=== PATIENT | female | born 1930 | race American Indian/Alaskan Native ===

== ENCOUNTER 2018-07-25 21:58 | Inpatient (IN) | payer MEDICARE, OTHER ==
--- NOTE | 2018-07-25 23:39 | XRay Report ---
FINAL REPORT EXAM: XR CHEST 1V AP HISTORY: Shortness of breath TECHNIQUE: upright single view chest PRIORS: None. FINDINGS: Cardiac and mediastinal contours are unremarkable. No focal pulmonary infiltrate is identified. No pleural fluid collection seen. Pulmonary vasculature is unremarkable. IMPRESSION: Negative single-view chest
[2018-07-25 23:48] LABS: Basophils # (Auto) 0.1 K/mm3 (0.0-0.1); Basophils % (Auto) 0.5 % (0.0-1.8); Hematocrit 34.9 % (30.3-42.9); Hemoglobin 11.6 gm/dl (10.1-14.3); Lymphocytes # (Auto) 1.2 K/mm3 (1.2-5.4); Lymphocytes % (Auto) 8.7 % (13.4-35.0); Mean Corpuscular HGB Conc 33 % (30-34); Mean Corpuscular Volume 99 fl (79-97); Monocytes % (Auto) 7.1 % (0.0-7.3); Platelet Count 263 K/mm3 (140-440); Red Blood Count 3.52 M/mm3 (3.65-5.03)
[2018-07-25 23:56] LABS: Calcium 10.2 mg/dL (8.4-10.2)
--- NOTE | 2018-07-25 23:58 | Emergency Department Report ---
ED General Adult HPI - General Chief complaint: Dyspnea/Respdistress Stated complaint: HEMATEMESIS Time Seen by Provider: 07/25/18 23:30 Source: patient Mode of arrival: Stretcher Limitations: No Limitations - History of Present Illness Initial comments: She is an 88-year-old female extensive emergency room with complaints of cough and vomiting blood. Patient states yesterday she vomited blood twice and then again this evening. Patient states that the vomitus is dark brown and did not note any bright red blood. Patient denies changes in her stool color. Patient denies diarrhea. Patient denies abdominal pain. Patient denies shortness of breath. Patient denies chest pain. Patient denies any other complaints except for cough. Patient states that her cough is a dry cough as been going on for 48 hours. -: Sudden - Related Data Allergies Allergy/AdvReac Type Severity Reaction Status Date / Time No Known Allergies Allergy Verified 07/25/18 22:39 ED Review of Systems ROS: Stated complaint: HEMATEMESIS Other details as noted in HPI Constitutional: denies: chills, fever Eyes: denies: eye pain, eye discharge, vision change ENT: denies: ear pain, throat pain Respiratory: cough. denies: shortness of breath, wheezing Cardiovascular: denies: chest pain, palpitations Endocrine: no symptoms reported Gastrointestinal: nausea, vomiting, hematemesis. denies: abdominal pain, diarrhea Genitourinary: denies: urgency, dysuria, discharge Musculoskeletal: denies: back pain, joint swelling, arthralgia Skin: denies: rash, lesions Neurological: denies: headache, weakness, paresthesias Psychiatric: denies: anxiety, depression Hematological/Lymphatic: denies: easy bleeding, easy bruising ED Past Medical Hx - Past Medical History Previous Medical History?: Yes Hx Hypertension: Yes Additional medical history: alchoholism - Surgical History Past Surgical History?: No - Family History Family history: no significant - Social History Smoking Status: Current Every Day Smoker Substance Use Type: Alcohol ED Physical Exam - General Limitations: No Limitations General appearance: alert, in no apparent distress - Head Head exam: Present: atraumatic, normocephalic - Eye Eye exam: Present: normal appearance - ENT ENT exam: Present: mucous membranes moist - Neck Neck exam: Present: normal inspection - Respiratory Respiratory exam: Present: normal lung sounds bilaterally, rhonchi, decreased breath sounds. Absent: respiratory distress - Cardiovascular Cardiovascular Exam: Present: regular rate, normal rhythm. Absent: systolic murmur, diastolic murmur, rubs, gallop - GI/Abdominal GI/Abdominal exam: Present: soft, normal bowel sounds - Extremities Exam Extremities exam: Present: normal inspection - Back Exam Back exam: Present: normal inspection - Neurological Exam Neurological exam: Present: alert, oriented X3 - Psychiatric Psychiatric exam: Present: normal affect, normal mood - Skin Skin exam: Present: warm, dry, intact, normal color. Absent: rash ED Course Vital Signs 07/25/18 07/25/18 07/25/18 22:13 22:16 22:40 Temperature 97.5 F L Pulse Rate 81 91 H 130 H Respiratory 14 18 16 Rate Blood Pressure 118/71 118/71 113/83 O2 Sat by Pulse 88 Oximetry 07/25/18 07/25/18 07/25/18 23:18 23:26 23:30 Temperature Pulse Rate 137 H 140 H 140 H Respiratory 25 H 24 25 H Rate Blood Pressure 118/71 101/63 O2 Sat by Pulse 100 100 Oximetry 07/25/18 07/25/18 07/26/18 23:46 23:50 00:00 Temperature Pulse Rate 144 H 131 H 151 H Respiratory 30 H 26 H 28 H Rate Blood Pressure 118/71 118/71 101/63 O2 Sat by Pulse 92 98 90 Oximetry 07/26/18 07/26/18 07/26/18 00:16 00:30 00:46 Temperature Pulse Rate 134 H 129 H 133 H Respiratory 28 H 20 23 Rate Blood Pressure 118/75 94/61 101/57 O2 Sat by Pulse 100 Oximetry 07/26/18 07/26/18 07/26/18 01:00 01:16 01:30 Temperature Pulse Rate 131 H 141 H 134 H Respiratory 18 25 H 19 Rate Blood Pressure 105/62 105/62 105/62 O2 Sat by Pulse 68 L 99 59 L Oximetry 07/26/18 07/26/18 07/26/18 01:45 02:00 02:16 Temperature Pulse Rate 141 H 145 H 136 H Respiratory 28 H 28 H 26 H Rate Blood Pressure 112/61 112/61 101/46 O2 Sat by Pulse 98 100 Oximetry 07/26/18 02:30 Temperature Pulse Rate 127 H Respiratory 38 H Rate Blood Pressure 87/62 O2 Sat by Pulse 75 L Oximetry - Reevaluation(s) Reevaluation #1: Initial Evaluation done. Patient is currently hypoxic and on nonrebreather. Patient also noted to be tachycardic. Patient denies shortness of breath. 07/25/18 23:30 Patient reevaluated. Patient lung sounds change. Patient is now wheezing. Patient will be given duo nebs and mag and site Medrol and antibiotics. 07/26/18 01:15 Patient still tachycardic and on 4 L of oxygen via nasal cannula.. Lung sounds are clear now. Patient placed on BiPAP. Patient is not hypoxic at this time but heart rate is elevated. Patient will be given saline bolus. 07/26/18 02:15 Patient placed on BiPAP and heart rate improved. Patient will go to nuclear med for nuclear scan. 07/26/18 0230 Stress to all results with patient and family. Discussed plan of care with patient and family. Patient to be admitted to the hospitalist service for further evaluation treatment. Family agree with the plan of care. 07/26/18 03:34 Patient's heart rate better 07/26/18 03:45 - Consultations Consultation #1: Hospitalist consult for admission. Hospitalist to admit patient. Hospitalist to assume care patient.. 07/26/18 03:34 ED Medical Decision Making - Lab Data Result diagrams: 07/25/18 23:30 07/25/18 23:30 - EKG Data -: EKG Interpreted by Me EKG shows normal: sinus rhythm, axis, intervals, QRS complexes, ST-T waves Rate: tachycardia - EKG Data Interpretation: LV[facility] - Radiology Data Radiology results: report reviewed, image reviewed interpreted by me: Negative chest x-ray Normal limits chest x-ray. Nuclear scan negative for PE. - Medical Decision Making Condition is an 80-year-old female that presents emergency room with complaints of cough and vomiting blood. Patient also has nausea vomiting. Patient denied abdominal pain or chest pain shortness of breath. Patient found to be hypoxic. Patient placed on oxygen and then later BiPAP. Patient's heart rate and oxygen improved with BiPAP. Patient given antibiotics and steroids and DuoNeb nebs and saline. Patient admitted to the hospitalist service and into the ICU for further [place] treatment. - Differential Diagnosis hypoxia. Bronchitis. Pneumonia. Sepsis. PE. Critical Care Time: Yes Critical care attestation.: If time is entered above; I have spent that time in minutes in the direct care of this critically ill patient, excluding procedure time. Critical Care Time: 80 minutes ED Disposition Clinical Impression: Cough, Hypoxia, Bronchitis, Hyponatremia, Lactic acid acidosis, Elevated d- dimer, Acute renal insufficiency Hematemesis Qualifiers: Nausea presence: with nausea Qualified Code(s): K92.0 - Hematemesis Nausea & vomiting Qualifiers: Vomiting type: unspecified Vomiting Intractability: non-intractable Qualified Code(s): R11.2 - Nausea with vomiting, unspecified Sepsis Qualifiers: Sepsis type: sepsis due to unspecified organism Qualified Code(s): A41.9 - Sepsis, unspecified organism Disposition: 09 OP ADMIT IP TO THIS HOSP Is pt being admited?: Yes Does the pt Need Aspirin: No Condition: Critical Time of Disposition: 03:35
[2018-07-26 00:20] LABS: Creatine Kinase MB 3.6 ng/mL (0.0-4.0)
[2018-07-26] MEDS ORDERED: MAGNESIUM SULFATE 1 GM in NACL 0.9% 50 ML IV ONE (01:13)
[2018-07-26] MEDS ORDERED: SOLU-Medrol IV ONE (01:13)
[2018-07-26] MEDS ORDERED: DUONEB *Not for PRN Use IH ONE (01:13)
[2018-07-26] MEDS ORDERED: MAXIPIME/NS 1 GM/100 ML 1 GM/100 ML BAG IV ONE (01:14)
[2018-07-26] MEDS ORDERED: NACL 0.9% 1000 ML 1,000 ML IV ONE ×2 (01:52→16:43)
--- NOTE | 2018-07-26 03:42 | Nuclear Medicine Report ---
FINAL REPORT PROCEDURE: NM LUNG SCAN PERF/VENT TECHNIQUE: 5 mCi Tc-99m MAA was injected IV for pulmonary perfusion imaging in multiple projections. 15 MCi xenon 133 was inhaled for pulmonary ventilation imaging in multiple projections. Injection si te: RIGHT antecubital fossa. CPT 02744 REGULATORY GUIDELINES: The patient was released based upon guidelines established in [facility] Regulat ions for Protection Against Radiation, Chapter 1199-08-06-35, Release of Individuals Containing Radio active Drugs or Implants. HISTORY: hypoxia. tachy. COMPARISON: No prior studies are available for comparison. FINDINGS: Posterior images of the perfusion and ventilation study demonstrate no unmatched defects. The oblique perfusion images demonstrate photopenic areas corresponding to the pulmonary abhi and fissures. IMPRESSION: No specific evidence of pulmonary embolism.
[2018-07-26] MEDS ORDERED: PROVENTIL IH PRN ×2 (04:21→06:00)
[2018-07-26] MEDS ORDERED: TYLENOL PO PRN (04:25)
[2018-07-26] MEDS ORDERED: ZOFRAN IV PRN (04:30)
[2018-07-26] MEDS ORDERED: ROBITUSSIN PO PRN (04:34)
[2018-07-26] MEDS ORDERED: VANCOMYCIN PHARMACY TO DOSE IV SCH (05:00)
[2018-07-26] MEDS ORDERED: VANCOMYCIN 1,500 MG in NACL 0.9% 500 ML 500 ML IV ONE (06:00)
[2018-07-26] MEDS ORDERED: SOLU-Medrol ONE (06:06)
[2018-07-26] MEDS: SOLU-Medrol IV SCH ×3 (06:08→21:22)
[2018-07-26 06:58] LABS: BUN/Creatinine Ratio 46; Blood Urea Nitrogen 91 mg/dL (7-17); Calcium 9.1 mg/dL (8.4-10.2); Creatine Kinase MB 3.9 ng/mL (0.0-4.0); Hemolysis Index 43
[2018-07-26] MEDS ORDERED: NACL 0.9% 1000 ML 2,000 ML IV ONE (08:05)
[2018-07-26] MEDS ORDERED: NACL 0.9% 1000 ML 2,000 ML ONE (08:10)
[2018-07-26 08:37] LABS: Hematocrit 32.5 % (30.3-42.9); Hemoglobin 10.6 gm/dl (10.1-14.3)
--- NOTE | 2018-07-26 09:12 | Event Note ---
Date: 07/26/18 -full GI consult dictated - pt w/ ?coffee emesis now stable - discussed w/ pt, family, defers egd and wants to go home - ok to d/c from GI standpoint - will follow and consider EGD based on progress
[2018-07-26] MEDS: PROTONIX IV SCH ×2 (11:00→21:21)
[2018-07-26] MEDS: MAXIPIME/NS 1 GM/100 ML 1 GM/100 ML BAG IV SCH ×3 (11:00→21:21)
[2018-07-26] MEDS ORDERED: LASIX IV ONE ×2 (11:16→17:00)
[2018-07-26] MEDS: DUONEB *Not for PRN Use IH SCH ×3 (12:00→20:38)
--- NOTE | 2018-07-26 12:14 | Consultation ---
History of Present Illness - Reason for Consult Consult date: 07/26/18 acute renal failure Requesting physician: VIOLET NAVA - History of Present Illness This is a 88 y/o female who presented to [facility] ED yesterday with c/o dry cough and vomiting dark brown output. On admission, SCr level was 2.2, today's SCr level was 2.0. GI consulted for possible hematemesis. Pt defered EGD at this time per GI note. Pt is legally blind in both eyes. Pt reports having vomiting for about 2 days prior to admission. Pt denies NSAIDs use. Pt denies any kidney problems to her knowledge. CXR negative for acute process. We were consulted to evaluate this pt who has SILVIA. Pt started on IV fluids and antibiotics. Elevated D Dimer, s/p VQ scan showed no specific PE. Medications and Allergies Allergies Allergy/AdvReac Type Severity Reaction Status Date / Time No Known Allergies Allergy Verified 07/25/18 22:39 Active Meds: Active Medications Acetaminophen (Tylenol) 650 mg PO Q4H PRN PRN Reason: Fever >101 Albuterol (Proventil) 2.5 mg IH Q6HRT PRN PRN Reason: Shortness Of Breath Last Admin: 07/26/18 08:58 Dose: 2.5 mg Documented by: Albuterol/Ipratropium (Duoneb *Not For Prn Use*) 1 ampul IH QIDRT LULY Last Admin: 07/26/18 12:00 Dose: 1 ampul Documented by: Guaifenesin (Robitussin) 200 mg PO Q4H PRN PRN Reason: Cough Cefepime HCl (Maxipime/Ns 1 Gm/100 Ml) 1 gm in 100 mls @ 200 mls/hr IV Q12HR LULY; Protocol Sodium Chloride (Nacl 0.9% 1000 Ml) 1,000 mls @ 125 mls/hr IV DIRECT LULY Methylprednisolone Sodium Succinate (Solu-Medrol) 60 mg IV Q8HR [facility] Last Admin: 07/26/18 06:08 Dose: 60 mg Documented by: Ondansetron HCl (Zofran) 4 mg IV Q8H PRN PRN Reason: Nausea And Vomiting Pantoprazole Sodium (Protonix) 40 mg IV BID [facility] Review of Systems Constitutional: fatigue, weakness Eyes: bilateral: loss of vision (pt reports being blind in both eyes) Cardiovascular: no chest pain, no lightheadedness, no shortness of breath Respiratory: cough Gastrointestinal: nausea, vomiting, no abdominal pain, no diarrhea, no constipation Musculoskeletal: muscle weakness Integumentary: no sores, no wounds Neurological: other (legally blind in both eyes) Exam - Vital Signs Vital signs: Vital Signs Pulse Resp BP 81 14 118/71 07/25/18 22:13 07/25/18 22:13 07/25/18 22:13 - General Appearance General appearance: well-developed EENT: ATNC (blind in both eyes) Neck: Present: neck supple Respiratory: Decreased Breath Sounds Heart: regular, S1S2 Gastrointestinal: Present: normoactive bowel sounds. Absent: tenderness Integumentary: warm and dry Neurologic: alert and oriented x3 Musculoskeletal: Present: other (no edema to BLE) Psychiatric: cooperative Results - Lab Results 07/26/18 08:16 07/26/18 06:07 Most recent lab results Calcium 9.1 mg/dL (8.4-10.2) 07/26/18 06:07 Assessment and Plan Acute Kidney Injury possibly prerenal in setting of nausea, vomiting, questionable underlying CKD process, r/o obstruction: - Renal function reviewed, SCr level was 2.0 today, yesterday's SCr level was 2.2 - Exact SCr baseline unknown - Renally dose meds - On 0.9% NS infusion at 125 ml/hr - Obtain urine lytes/protein - Lactic Acid 3.80 - Repeat BMP at 1700 - Renal US ordered - [place] Catheter: No - Renal plan d/w Dr Haney Vomiting: Questionable Hematemesis: - GI consulted, pt defered EGD at this time - As per primary team Hyponatremia: - Possibly due to hypovolemia - On 0.9% NS infusion at 125 ml/hr - Obtain urine lytes - Repeat BMP at 1700 - Goal sodium correction of < 8 mmol/L within 24 hrs - Monitor Elevated D-Dimer: - VQ Scan showed no specific PE - As per primary
--- NOTE | 2018-07-26 13:05 | Event Note ---
Date: 07/26/18 Patient seen and examined, continue supportive care. Give 2 liter fluids. Nebs due to the wheezing. GI consult noted Patient is legally blind. Assist with feeds. Fall precautions Aspiration precautions Plan discussed with the patient in detail
--- NOTE | 2018-07-26 13:20 | History and Physical Report ---
CHIEF COMPLAINT: Hematemesis. OTHER COMPLAINTS: Includes cough. HISTORY OF PRESENTING ILLNESS: The patient is an 88-year-old female, who said that she vomited blood twice the day prior to presentation and also vomited blood on the evening of day of presentation. Denied history of chest pain. Denied history of abdominal pain, shortness of breath. Also, the patient denied history of diarrhea, constipation or hematochezia. The patient also denied history of melena or back stool. Stated that she did not have any abdominal pain or diarrhea and complain about dry cough going on for about 2 days. There is also no history of fever or chills. The patient was seen in the Emergency Room, evaluated and found to have heme positive stool. PAST MEDICAL HISTORY: Pertinent for hypertension and alcohol abuse. PAST SURGICAL HISTORY: Unremarkable. FAMILY HISTORY: Noncontributory. SOCIAL HISTORY: The patient smokes cigarettes, drinks alcohol and does not use illicit drugs. MEDICATIONS: The patient's home medications are not known. ALLERGIES: There are no known drug allergies. REVIEW OF SYSTEMS: CONSTITUTIONAL: There is no fever, no chills, no diaphoresis. HEENT: There is no headache or sore throat. CARDIOVASCULAR SYSTEM: There is no chest pain, no orthopnea. RESPIRATORY SYSTEM: There is no shortness of breath, but cough is present. GASTROINTESTINAL SYSTEM: Hematemesis is present. No abdominal pain, no diarrhea, no constipation and no hematochezia. NEUROLOGICAL SYSTEM: There is no numbness, no dizziness, no altered mental status. MUSCULOSKELETAL SYSTEM: There is no joint pain or swelling. DERMATOLOGICAL SYSTEM: There is no skin rash or itching. GENITOURINARY SYSTEM: There is no dysuria, hematuria, or flank pain. Rest of system review is normal. PHYSICAL EXAMINATION: GENERAL: At the time of exam, the patient was found to be alert, oriented x 3, and in mild distress due to difficulty in breathing. VITAL SIGNS: At the time of presentation shows temperature of 97.5 degrees Fahrenheit, pulse of 130, respiration 16, blood pressure 113/83, O2 sat of 88% on room air. HEENT: Showed pupils to be equal, round, reactive to light and accommodation. Extraocular muscles intact. NECK: Supple with no JVD or carotid bruits. CARDIOVASCULAR SYSTEM: Show normal first and second heart sounds with no gallops or murmurs. RESPIRATORY SYSTEM: Show reduced air entry on both sides of the lungs with respiratory wheezing. GASTROINTESTINAL SYSTEM: Show abdomen to be full, soft, nontender with no organomegaly or rigidity. NEUROLOGIC: Shows no focal deficit. MUSCULOSKELETAL SYSTEM: Show no joint swelling or tenderness. DERMATOLOGICAL SYSTEM: Showing no skin rash. GENITOURINARY SYSTEM: Showing no costovertebral angle tenderness. PERTINENT LABORATORY AND IMAGING STUDIES: The patient has CBC done that shows elevated white count of 14,200 with normal hemoglobin and normal hematocrit with CBC differential showing elevated segmented neutrophil of 83.7%. The patient's coagulation studies show high D-dimer level. The patient's chemistry showed low sodium level of 131, low chloride of 89.12 with normal potassium level and elevated BUN of 94 with elevated creatinine of 2.2 and high blood glucose of 231. The patient's lactic acid level was high with a value of 2.7. The patient's brain natriuretic peptide level came back normal. Cardiac enzymes show normal troponin, normal total CPK with normal CK-MB and elevated CK percentage index of 5.2. IMAGING STUDIES: The patient had chest x-ray done that shows negative single view chest result. DIAGNOSES: 1. Gastrointestinal bleed. 2. Sepsis. 3. Acute bronchitis. 4. Acute renal failure. PLAN OF ACTION: 1. The patient will be admitted to telemetry. 2. The patient will have Gastroenterology consult with [facility] with Dr. Leroy Smiley consulted. Also, the patient will have Nephrology consult with Dr. Griffith for acute kidney injury. 3. The patient will have basic metabolic panel checked in the morning and will have cardiac enzyme involving troponin, total CK, and CK-MB checked serially every 6 hours x 2 more levels. 4. The patient will remain n.p.o. until seen by the paper cone machine operator. 5. The patient will be on IV normal saline at 125 mL an hour and will be on IV cefepime or Maxipime 1 gram q.6 hours. 6. The patient will be on IV vancomycin with pharmacy to dose for treatment of sepsis. 7. The patient will be on IV Solu-Medrol 60 mg q.8 hours for the treatment of bronchitis and will be on albuterol nebulizer 2.5 mg q.6 hours. 8. The patient will be on IV pantoprazole 40 mg twice daily. 9. The patient will continue BiPAP treatment until the patient improves. 10. The patient will have V/Q scan done because of elevated D-dimer to rule out PE. 11. The patient will be on Tylenol 650 mg by mouth every 4 hours for fever and headache and IV Zofran 4 mg every 8 hours for nausea and vomiting. JOB# [id number] OCN/NTS MTDD
[2018-07-26 15:43] LABS: Creatine Kinase MB 4.7 ng/mL (0.0-4.0)
[2018-07-26] MEDS: NACL 0.9% 1000 ML 1,000 ML IV SCH (17:13)
[2018-07-26 17:42] LABS: Creatine Kinase MB 4.4 ng/mL (0.0-4.0)
--- NOTE | 2018-07-26 20:35 | Consultation ---
REFERRING PHYSICIAN: Angel Alonso MD INDICATION: 1. Anemia. 2. Gastrointestinal bleed. HISTORY OF PRESENT ILLNESS: The patient is an 88-year-old black male being seen by GI for possible GI bleed. The patient reports usual state of health until the day prior to admission. The patient is legally blind. The patient reports coughing with a question of coffee-ground emesis. Per daughter who is there with the interview was conducted. More it is kind of a brownish cough material, but did not think it was necessarily coffee ground. The patient reports that happen twice in 24 hour, subsequently came to the Emergency Room. She had been having a dry cough up until that point. She did notice some streaks of dark stool, but not distinctly black stools. She reports no history of GI bleed. The patient subsequently came to Emergency Room, was seen and evaluated and admitted and GI consulted. The patient denies any other specific GI problems or complaints. PAST MEDICAL HISTORY: Includes: 1. GERD. 2. Dyspepsia. ALLERGIES: No known drug allergies. MEDICATIONS: Seen reviewed and updated in chart. SOCIAL HISTORY: Reported alcohol in the past. FAMILY HISTORY: Negative for colon cancer, IBD or liver disease. REVIEW OF SYSTEMS: GENERAL: Reports weakness. HEENT: No visual complaints or tinnitus. PULMONARY: No shortness of breath. No cough. No chest pain. GASTROINTESTINAL: Reports a question of coffee emesis. All points of 13-point review of systems otherwise negative. PHYSICAL EXAMINATION: VITAL SIGNS: Temperature of 98.7, pulse 120, respirations 18, blood pressure 107/70. GENERAL: Fairly nourished female in no acute distress. HEENT: Pupils are equal, round and reactive. PULMONARY: Clear to auscultation bilaterally. CARDIOVASCULAR: Normal S1, S2. ABDOMEN: Positive bowel sounds, soft. SKIN: No obvious rashes. LABORATORY DATA: Pertinent for white count of 14, hemoglobin and hematocrit 11.6 and 34.9, platelet count of 363. Chem-7, sodium of 133, potassium 4.3, chloride 96, CO2 22, BUN and creatinine of 91 and 2.0. ASSESSMENT AND PLAN: An 88-year-old female presented with a reported 24 hours of 2 bouts of brownish emesis, but not necessarily coffee-ground after 48 hours of dry heaving and coughing. The patient reports some dark, but not black stools. The patient subsequently came to Emergency Room, noted to be slightly anemic. The patient's family and herself did not think the material was coffee ground. The patient herself does not think she is bleeding and does not think an endoscopy is necessary. She is deferred that at this time. Management is noted below. PLAN: 1. PPI IV b.i.d. 2. Follow hematocrit, transfuse as needed. 3. Start p.o. 4. Okay to watch overnight and consider EGD based on progress. 5. The patient herself wants to go home today, I defer that to the primary team. 6. We will follow and consider EGD based on progress. JOB# [id number] CAB/NTS
[2018-07-27] MEDS: NACL 0.9% 1000 ML 1,000 ML IV SCH ×3 (02:19→21:55)
[2018-07-27 03:37] LABS: Hematocrit 23.9 % (30.3-42.9); Hemoglobin 7.9 gm/dl (10.1-14.3); Mean Corpuscular HGB Conc 33 % (30-34); Mean Corpuscular Volume 100 fl (79-97); Platelet Count 173 K/mm3 (140-440); Red Cell Distribution Width 14.2 % (13.2-15.2)
[2018-07-27 03:54] LABS: Calcium 8.5 mg/dL (8.4-10.2)
[2018-07-27] MEDS: SOLU-Medrol IV SCH ×2 (05:38→21:54)
[2018-07-27] MEDS: DUONEB *Not for PRN Use IH SCH ×5 (08:07→20:37)
[2018-07-27] MEDS: PROTONIX IV SCH ×2 (09:46→21:54)
[2018-07-27] MEDS: MAXIPIME/NS 1 GM/100 ML 1 GM/100 ML BAG IV SCH ×2 (09:47→22:00)
--- NOTE | 2018-07-27 10:08 | Progress Note ---
Assessment and Plan Acute Kidney Injury possibly prerenal in setting of nausea, vomiting, questionable underlying CKD process, r/o obstruction: - Cr is trending down but no UOP recorded - Exact SCr baseline unknown - Renally dose meds - On 0.9% NS infusion at 125 ml/hr - Renal US ordered - [place] Catheter: No Vomiting: Questionable Hematemesis: - GI consulted, pt defered EGD at this time - As per primary team Hyponatremia: - imporvong with NS - Goal sodium correction of < 8 mmol/L within 24 hrs Elevated D-Dimer: - VQ Scan showed no specific PE - As per primary Subjective Date of service: 07/27/18 Principal diagnosis: acute renal failure Interval history: denies acute issues Objective - Vital Signs Vital signs: Vital Signs - 12hr 07/26/18 07/27/18 07/27/18 23:43 04:52 05:00 Temperature 98.4 F 98.8 F Pulse Rate 125 H 120 H 121 H Pulse Rate [ Posterior Bilateral Throughout] Respiratory 16 16 Rate Respiratory Rate [Posterior Bilateral Throughout] Blood Pressure 121/62 119/71 O2 Sat by Pulse 99 97 Oximetry 07/27/18 07/27/18 07/27/18 08:05 08:07 08:22 Temperature 98.6 F Pulse Rate 124 H Pulse Rate [ 118 H 112 H Posterior Bilateral Throughout] Respiratory 20 Rate Respiratory 18 18 Rate [Posterior Bilateral Throughout] Blood Pressure 121/43 O2 Sat by Pulse 99 Oximetry - General Appearance General appearance: well-developed, cachectic EENT: ATNC, PERRL, mucous membranes moist Neck: no JVD, no carotid bruit Respiratory: Present: Clear to Ascultation. Absent: Rales, Ronchi Cardiology: regular, S1S2 Gastrointestinal: normoactive bowel sounds, no tenderness, no distended Integumentary: no rash, warm and dry Neurologic: no focal deficit, no asterixis Musculoskeletal: other (follows simple commands) Psychiatric: cooperative - Lab 07/28/18 06:01 07/28/18 06:01 Most recent lab results Calcium 8.5 mg/dL (8.4-10.2) 07/27/18 02:21 Phosphorus 2.70 mg/dL (2.5-4.5) 07/27/18 05:28 Magnesium 1.80 mg/dL (1.7-2.3) 07/27/18 05:28 Medications & Allergies - Medications Allergies/Adverse Reactions: Allergies No Known Allergies Allergy (Verified 07/25/18 22:39) Home Medications: Home Medications Medication Instructions Recorded Confirmed Last Taken Type ALBUTEROL Inhaler(NF) [VENTOLIN 1 puff IH Q4H PRN #1 can 07/28/18 Unknown Rx Inhaler(NF)] Ferrous Sulfate 325 mg PO BID #60 tablet. 07/28/18 Unknown Rx Pantoprazole [Protonix TAB] 40 mg PO DAILY #30 tablet 07/28/18 Unknown Rx guaiFENesin [Robitussin] 200 mg PO Q4H PRN #1 oral.liqd 07/28/18 Unknown Rx Active Medications: Generic Name Dose Route Start Last Admin Trade Name Freq PRN Reason Stop Dose Admin Acetaminophen 650 mg 07/26/18 04:25 Tylenol PO Q4H PRN Fever >101 Albuterol 2.5 mg 07/26/18 06:00 07/26/18 08:58 Proventil IH 2.5 mg Q6HRT PRN Administration Shortness Of Breath Albuterol/Ipratropium 1 ampul 07/26/18 12:00 07/27/18 08:07 Duoneb *Not For Prn Use* IH 1 ampul QIDRT LULY Administration Guaifenesin 200 mg 07/26/18 04:34 Robitussin PO Q4H PRN Cough Cefepime HCl 1 gm in 100 mls @ 200 mls/hr 07/26/18 10:00 07/27/18 09:47 Maxipime/Ns 1 Gm/100 Ml IV 200 mls/hr Q12HR LULY Administration Protocol Sodium Chloride 1,000 mls @ 125 mls/hr 07/26/18 05:00 07/27/18 02:19 Nacl 0.9% 1000 Ml IV 125 mls/hr DIRECT LULY Administration Methylprednisolone Sodium Succinate 60 mg 07/26/18 06:00 07/27/18 05:38 Solu-Medrol IV 60 mg Q8HR LULY Administration Ondansetron HCl 4 mg 07/26/18 04:30 Zofran IV Q8H PRN Nausea And Vomiting Pantoprazole Sodium 40 mg 07/26/18 10:00 07/27/18 09:46 Protonix IV 40 mg BID LULY Administration
--- NOTE | 2018-07-27 10:59 | Gastroenterology Progress Note ---
Addendum entered and electronically signed by EDSON YAO MD 07/27/18 15:15: - EGD today - other rec as outlined Original Note: Assessment and Plan 1.UGIB 2.coffee-ground emesis -H/H 7.9/23.9-trending down -continue to monitor H/H and transfuse as needed -hold blood thinning medications -no active signs of bleeding today per nursing -etiology unclear -will schedule for EGD today (discussed with pt's daughter (Sammie Ribeiro [phone]) to include risks vs benefits- she is agreeable) -Keep NPO -continue PPI -continue supportive care -will follow Subjective Date of service: 07/27/18 Principal diagnosis: UGIB Interval history: No acute distress. No active signs of bleeding this am per nursing. Denies abd pain or N/V. Objective - Constitutional Vitals: Temp Pulse Resp BP Pulse Ox 98.6 F 112 H 18 121/43 99 07/27/18 08:05 07/27/18 08:22 07/27/18 08:22 07/27/18 08:05 07/27/18 08:05 General appearance: no acute distress - Respiratory Respiratory: bilateral: diminished - Cardiovascular Rhythm: other (tachycardia) - Gastrointestinal General gastrointestinal: Present: soft, non-tender, non-distended, normal bowel sounds - Labs CBC & Chem 7: 07/27/18 02:21 07/27/18 02:21 Labs: Laboratory Results - last 24 hr 07/26/18 07/26/18 07/26/18 14:56 14:56 16:38 WBC RBC Hgb Hct MCV MCH MCHC RDW Plt Count Sodium Potassium Chloride Carbon Dioxide Anion Gap BUN Creatinine Estimated GFR BUN/Creatinine Ratio Glucose Lactic Acid 3.50 H* Calcium Phosphorus Magnesium Total Creatine Kinase 113 119 CK-MB (CK-2) 4.7 H 4.4 H CK-MB (CK-2) Rel Index 4.1 H 3.6 Troponin T < 0.010 PTH Intact 07/26/18 07/26/18 07/26/18 16:38 20:16 22:29 WBC RBC Hgb Hct MCV MCH MCHC RDW Plt Count Sodium Potassium Chloride Carbon Dioxide Anion Gap BUN Creatinine Estimated GFR BUN/Creatinine Ratio Glucose Lactic Acid 3.50 H* 2.20 H* 3.30 H* Calcium Phosphorus Magnesium Total Creatine Kinase CK-MB (CK-2) CK-MB (CK-2) Rel Index Troponin T PTH Intact 07/27/18 07/27/18 07/27/18 01:00 02:21 02:21 WBC 15.0 H RBC 2.40 L Hgb 7.9 L Hct 23.9 L D MCV 100 H MCH 33 H MCHC 33 RDW 14.2 Plt Count 173 Sodium 137 Potassium 3.3 L D Chloride 98.2 Carbon Dioxide 25 Anion Gap 17 BUN 68 H Creatinine 1.4 H Estimated GFR 43 BUN/Creatinine Ratio 49 Glucose 188 H Lactic Acid 2.60 H* Calcium 8.5 Phosphorus Magnesium Total Creatine Kinase CK-MB (CK-2) CK-MB (CK-2) Rel Index Troponin T PTH Intact 07/27/18 07/27/18 07/27/18 02:21 05:25 05:28 WBC RBC Hgb Hct MCV MCH MCHC RDW Plt Count Sodium Potassium Chloride Carbon Dioxide Anion Gap BUN Creatinine Estimated GFR BUN/Creatinine Ratio Glucose Lactic Acid 2.70 H* 0.80 Calcium Phosphorus 2.70 Magnesium 1.80 Total Creatine Kinase CK-MB (CK-2) CK-MB (CK-2) Rel Index Troponin T PTH Intact 07/27/18 05:28 WBC RBC Hgb Hct MCV MCH MCHC RDW Plt Count Sodium Potassium Chloride Carbon Dioxide Anion Gap BUN Creatinine Estimated GFR BUN/Creatinine Ratio Glucose Lactic Acid Calcium Phosphorus Magnesium Total Creatine Kinase CK-MB (CK-2) CK-MB (CK-2) Rel Index Troponin T PTH Intact 176.3 H
--- NOTE | 2018-07-27 13:23 | Ultrasound Report ---
ULTRASOUND RENAL BILATERAL INDICATION: SILVIA. COMPARISON: None similar. FINDINGS: Renal sonography suggests slight increased renal cortical echogenicity. Grossly preserved contours. No hydronephrosis. RIGHT KIDNEY is 9.2 x 4.3 x 4.3 cm with cortical thickness of 1.6 cm. LEFT KIDNEY estimated at 9.1 x 4.2 x 5.3 cm with cortical thickness of 1.2 cm. URINARY BLADDER suboptimally distended and assessed. CONCLUSION: No acute renal abnormality with mild underlying medical renal disease suspected sonographically, as described. Please correlate. Thank you for the opportunity to participate in this patient's care.
--- NOTE | 2018-07-27 15:18 | Anesthesia Consultation ---
Anesthesia Consult and Med Hx Date of service: 07/27/18 - Airway Anesthetic Teeth Evaluation: Poor, Chipped ROM Head & Neck: Adequate Mental/Hyoid Distance: Adequate Mallampati Class: Class III Intubation Access Assessment: Possibly Difficult - Pre-Operative Health Status ASA Pre-Surgery Classification: ASA3 Proposed Anesthetic Plan: MAC - Pulmonary Hx Smoking: Yes - Cardiovascular System Hx Hypertension: Yes - Additional Comments Anesthesia Medical History Comments: alcohol abuse; smoker; ARF; Dyspepsia; GERD; legally blind; HR 124 [address] and K 3.[address] Santos.
--- NOTE | 2018-07-27 15:19 | Anesthesia Day of Surgery ---
Anesthesia Day of Surgery - Day of Surgery Patient Examined: Yes Patient H&P Reviewed: Yes Patient is NPO: Yes
[2018-07-27] MEDS ORDERED: DIPRIVAN 10 MG/ML IV ONE (15:24)
[2018-07-27] MEDS ORDERED: XYLOCAINE MPF 2% ONE (15:30)
[2018-07-27] MEDS: KCL 10MEQ/100ML 10 MEQ/100 ML BAG IV SCH ×2 (16:37→17:47)
--- NOTE | 2018-07-27 16:45 | Progress Note ---
Assessment and Plan Assessment and plan: Patient 88-year-old female extensive medical hx HTN and prior alcohol abuse, legally blind admitted coffee ground emesis, dehyration and SILVIA, the latter which is now improved. Patient denies any other complaints except for cough. Patient states that her cough is a dry cough as been going on for 48 hours. Coffee ground Emesis ?GI bleed Acute Blood loss Anemia HTN Hypokalemia SILVIA secondary to vasomotor nephropathy Dehydration Legally Lactic acidosis Plan Supportive care Replace electrolytes Continue IV fluids PPI Continue nebs GI eval EGD today Patient is legally blind. Assist with feeds. Fall precautions Aspiration precautions Plan discussed with the patient in detail Anticipate discharge in am based on EGD finding. History Interval history: Patient seen and examined today, no new complaints. no further coffee ground emesis Hospitalist Physical - Constitutional Vitals: Temp Pulse Resp BP Pulse Ox 98 F 98 H 18 126/76 98 07/27/18 15:43 07/27/18 16:13 07/27/18 16:13 07/27/18 16:13 07/27/18 16:13 General appearance: Present: no acute distress, well-nourished - EENT Eyes: Present: PERRL ENT: hearing intact, clear oral mucosa - Neck Neck: Present: supple, normal ROM - Respiratory Respiratory effort: normal Respiratory: bilateral: CTA - Cardiovascular Rhythm: regular Heart Sounds: Present: systolic murmur - Extremities Extremities: no ischemia, pulses intact, pulses symmetrical, No edema, normal temperature, normal color, Full ROM Peripheral Pulses: within normal limits - Abdominal General gastrointestinal: soft, non-tender, non-distended, normal bowel sounds - Integumentary Integumentary: Present: clear, warm, dry - Psychiatric Psychiatric: appropriate mood/affect, intact judgment & insight, memory intact, cooperative - Neurologic Neurologic: CNII-XII intact, moves all extremities - Allied Health Allied health notes reviewed: nursing Results - Labs CBC & Chem 7: 07/27/18 02:21 07/27/18 02:21 Labs: Laboratory Last Values WBC 15.0 K/mm3 (4.5-11.0) H 07/27/18 02:21 RBC 2.40 M/mm3 (3.65-5.03) L 07/27/18 02:21 Hgb 7.9 gm/dl (10.1-14.3) L 07/27/18 02:21 Hct 23.9 % (30.3-42.9) L D 07/27/18 02:21 MCV 100 fl (79-97) H 07/27/18 02:21 MCH 33 pg (28-32) H 07/27/18 02:21 MCHC 33 % (30-34) 07/27/18 02:21 RDW 14.2 % (13.2-15.2) 07/27/18 02:21 Plt Count 173 K/mm3 (140-440) 07/27/18 02:21 Lymph % (Auto) 8.7 % (13.4-35.0) L 07/25/18 23:30 [place] % (Auto) 7.1 % (0.0-7.3) 07/25/18 23:30 Eos % (Auto) 0.0 % (0.0-4.3) 07/25/18 23:30 Baso % (Auto) 0.5 % (0.0-1.8) 07/25/18 23:30 Lymph # 1.2 K/mm3 (1.2-5.4) 07/25/18 23:30 [place] # 1.0 K/mm3 (0.0-0.8) H 07/25/18 23:30 Eos # 0.0 K/mm3 (0.0-0.4) 07/25/18 23:30 Baso # 0.1 K/mm3 (0.0-0.1) 07/25/18 23:30 Seg Neutrophils % 83.7 % (40.0-70.0) H 07/25/18 23:30 Seg Neutrophils # 11.8 K/mm3 (1.8-7.7) H 07/25/18 23:30 D-Dimer 737.71 ng/mlDDU (0-234) H 07/26/18 00:17 Sodium 137 mmol/L (137-145) 07/27/18 02:21 Potassium 3.3 mmol/L (3.6-5.0) L D 07/27/18 02:21 Chloride 98.2 mmol/L (98-107) 07/27/18 02:21 Carbon Dioxide 25 mmol/L (22-30) 07/27/18 02:21 Anion Gap 17 mmol/L 07/27/18 02:21 BUN 68 mg/dL (7-17) H 07/27/18 02:21 Creatinine 1.4 mg/dL (0.7-1.2) H 07/27/18 02:21 Estimated GFR 43 ml/min 07/27/18 02:21 BUN/Creatinine Ratio 49 % 07/27/18 02:21 Glucose 188 mg/dL (65-100) H 07/27/18 02:21 Lactic Acid 0.80 mmol/L (0.7-2.0) 07/27/18 05:25 Calcium 8.5 mg/dL (8.4-10.2) 07/27/18 02:21 Phosphorus 2.70 mg/dL (2.5-4.5) 07/27/18 05:28 Magnesium 1.80 mg/dL (1.7-2.3) 07/27/18 05:28 Total Creatine Kinase 119 units/L (30-135) 07/26/18 16:38 CK-MB (CK-2) 4.4 ng/mL (0.0-4.0) H 07/26/18 16:38 CK-MB (CK-2) Rel Index 3.6 (0-4) 07/26/18 16:38 Troponin T < 0.010 ng/mL (0.00-0.029) 07/26/18 14:56 NT-Pro-B Natriuret Pep 353.6 pg/mL (0-900) 07/25/18 23:45 PTH Intact 176.3 pg/mL (15-65) H 07/27/18 05:28
--- NOTE | 2018-07-27 16:55 | Post Anesthesia Evaluation ---
- Post Anesthesia Evaluation Patient Participated: Yes (sleeping) Airway Patent: Yes Stable Respiratory Function: Yes Nausea/Vomiting: No Temp > 96.8F: Yes Pain Manageable: Yes Adequeate Hydration: Yes Anesthesia Complications: No Block Receding Appropriately: Not Applicable Patient on Ventilator: No
--- NOTE | 2018-07-27 17:39 | Post Operative Note ---
Pre-op diagnosis: gi bleed Post-op diagnosis: same Findings: EGD: hiatal hernia - 1 cm white based ulcer antrum (bx's) - negative other Procedure: EGD Anesthesia: MAC Surgeon: EDSON YAO Estimated blood loss: none Pathology: list Specimen disposition: to lab Condition: stable Disposition: floor
[2018-07-27] MEDS: LOPRESSOR PO SCH ×2 (17:47→21:53)
--- NOTE | 2018-07-27 18:27 | Operative Report ---
PROCEDURE: EGD with cold biopsy. INDICATION: 1. Anemia. 2. GI bleed. MEDICATIONS: Propofol per FIXED ROUTE OPERATOR. COMPLICATIONS: None. DESCRIPTION OF PROCEDURE: The patient was brought to the procedure suite. The patient had the procedure discussed with her at length. All risks, complications, and benefits were discussed after which the patient signed for the procedure performed. The patient was placed in left lateral decubitus position. Mouth block was placed in the patient's oral cavity. After adequate sedation medication as above, the endoscope was introduced into the mouth and brought to the second portion of duodenum. Retroflexion view performed. The patient's vital signs remained stable throughout the procedure. FINDINGS: There was noted to be a small to medium hiatal hernia at GE junction at 38 cm from the gums. Esophagus otherwise appeared to be normal. There was noted to be a slightly cratered 1 cm fully white base ulcer with a single small pigmented area noted in the antrum. [id number] antral gastritis also noted. Biopsies were taken and sent of the antrum and sent to pathology. Remaining stomach otherwise appeared to be normal. The duodenum appeared to be normal. Retroflexion view performed in the stomach showed no other pathology other than noted above. The patient tolerated the procedure well. No complications during the procedure. IMPRESSION: 1. Hiatal hernia. 2. Otherwise, normal esophagus. 3. Ulcer in the antrum as noted above without significant bleeding stigmata. 4. Gastritis, biopsies performed. 5. Otherwise, normal EGD. RECOMMENDATIONS: 1. Follow up biopsy results. 2. If stool for H. pylori positive, we will treat. 3. PPI daily. 4. If H and H stable in a.m., okay to discharge from GI standpoint. JOB# [id number] CAB/NTS
[2018-07-28 07:04] LABS: Hematocrit 22.5 % (30.3-42.9); Hemoglobin 7.6 gm/dl (10.1-14.3); Mean Corpuscular HGB Conc 34 % (30-34); Mean Corpuscular Volume 99 fl (79-97); Platelet Count 170 K/mm3 (140-440); Red Blood Count 2.26 M/mm3 (3.65-5.03); Red Cell Distribution Width 14.6 % (13.2-15.2)
[2018-07-28 07:08] LABS: Calcium 8.6 mg/dL (8.4-10.2)
[2018-07-28] MEDS ORDERED: PROTONIX PO SCH (10:00)
[2018-07-28] MEDS: LOPRESSOR PO SCH (10:13)
[2018-07-28] MEDS: SOLU-Medrol IV SCH (10:13)
[2018-07-28] MEDS: DUONEB *Not for PRN Use IH SCH (10:15)
--- NOTE | 2018-07-28 10:35 | Gastroenterology Progress Note ---
Addendum entered and electronically signed by EDSON YAO MD 07/28/18 14:33: - management as outlined - call if needed Original Note: Assessment and Plan 1.UGIB 2.coffee-ground emesis -H/H 7.6/22.5-stable -continue to monitor H/H and transfuse as needed -s/p EGD that revealed hiatal hernia, 1cm white based antral ulcer w/o bleeding stigmata, and gastritis -bx results pending-f/u in clinic -clinically, patient is stable with no active signs of bleeding. Denies abd pain or N/V. Tolerating diet. -avoid NSAIDs -continue PPI and supportive care -okay to be d/c per GI standpoint on PPI with follow up in clinic in ~2 weeks -will sign off, please call if needed Subjective Date of service: 07/28/18 Principal diagnosis: UGIB Interval history: Patient w/o acute distress. No active signs of bleeding overnight or this am per nursing. Denies abd pain or N/V. Objective - Constitutional Vitals: Temp Pulse Resp BP Pulse Ox 98.4 F 84 16 136/66 98 07/28/18 07:55 07/28/18 10:16 07/28/18 10:16 07/28/18 10:13 07/28/18 07:53 General appearance: no acute distress - Respiratory Respiratory: bilateral: CTA (anterior) - Cardiovascular Rhythm: regular - Gastrointestinal General gastrointestinal: Present: soft, non-tender, non-distended, normal bowel sounds - Labs CBC & Chem 7: 07/28/18 06:01 07/28/18 06:01 Labs: Laboratory Results - last 24 hr 07/28/18 07/28/18 06:01 06:01 WBC 11.7 H RBC 2.26 L Hgb 7.6 L Hct 22.5 L MCV 99 H MCH 34 H MCHC 34 RDW 14.6 Plt Count 170 Sodium 140 Potassium 3.9 Chloride 104.6 Carbon Dioxide 24 Anion Gap 15 BUN 39 H Creatinine 1.1 Estimated GFR 57 BUN/Creatinine Ratio 35 Glucose 142 H Calcium 8.6
--- NOTE | 2018-07-28 10:55 | Discharge Summary ---
Providers - Providers Date of Admission: 07/26/18 05:37 Attending physician: JANELLE HARO MD 07/26/18 06:00 Consult to Physician [CONS] Routine Comment: Consulting Provider: EDSON YAO Physician Instructions: Reason For Exam: HEMETEMESIS Consult to Physician [CONS] Routine Comment: Consulting Provider: MAGDALENE RAI Physician Instructions: Reason For Exam: SILVIA Primary care physician: ERASTO KEITH Hospitalization Reason for admission: upper GI bleeding, Anemia Condition: Stable Pertinent studies: Chest x-ray - Normal VQ scan - No specific evidence of PE Procedures: EGD; 1 cm ehite untral ulcer, hital hernia Hospital course: Patient 88-year-old female extensive medical hx HTN and prior alcohol abuse, legally blind admitted coffee ground emesis, dehyration and SILVIA, the latter which is now improved. Patient denies any other complaints except for cough. Patient claimed she has occasional dry cough but denied any fever, chills, shortness of breath. Patient says the cough is usually improved with Mucinex. Patient was admitted to the hospital for the management of upper GI bleed, acute blood loss anemia, acute kidney injury, dehydration patient was treated with IV fluids, Protonix, cough syrup. SILVIA resolved, patient didn't have any hematemesis after admission, patient's H&H was stable around 7.5, patient doesn't be transfusion at this time. GI was consulted and did EGD with biopsy, showed white 1 cm antral ulcer, and hiatal hernia. Patient was hemodynamically stable. I have discussed with the patient was in need of home health which she declined. Patient was given a prescription for iron, Protonix, albuterol inhaler, guaifenesin and discharged home. Disposition: [id number] HOME UNDER HOME [facility] Time spent for discharge: 32 minutes - Discharge Diagnoses (1) Hematemesis Status: Acute Qualifiers: Nausea presence: with nausea Qualified Code(s): K92.0 - Hematemesis (2) Lactic acid acidosis Status: Acute (3) Nausea & vomiting Status: Acute Qualifiers: Vomiting type: unspecified Vomiting Intractability: non-intractable Qualified Code(s): R11.2 - Nausea with vomiting, unspecified Core Measure Documentation - Palliative Care Palliative Care/ Comfort Measures: Not Applicable - Core Measures Any of the following diagnoses?: none Exam - Physical Exam Narrative exam: Legally blind Not in cardiopulmonary distress. The patient appeared well nourished and normally developed. Vital signs as documented. Head exam is unremarkable. No scleral icterus . Neck is without jugular venous distension, thyromegaly, or carotid bruits. Lungs are clear to auscultation. Cardiac exam reveals regular rate and Rhythm. First and second heart sounds normal. No murmurs, rubs or gallops. Abdominal exam reveals normal bowel sounds, no masses, no organomegaly and no aortic enlargement. Extremities are nonedematous and both femoral and pedal pulses are normal. 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 No focal weakness. - Constitutional Vitals: Temp Pulse Resp BP Pulse Ox 98.4 F 84 16 136/66 97 07/28/18 07:55 07/28/18 10:16 07/28/18 10:16 07/28/18 10:13 07/28/18 10:00 Plan Activity: advance as tolerated Weight Bearing Status: Weight Bear as Tolerated Diet: regular Follow up with: ERASTO KEITH MD [Primary Care Provider] - 7 Days Prescriptions: ALBUTEROL Inhaler(NF) [VENTOLIN Inhaler(NF)] 1 puff IH Q4H PRN #1 can PRN Reason: Dyspnea Ferrous Sulfate 325 mg PO BID #60 tablet.dr hernandezFENesin [Robitussin] 200 mg PO Q4H PRN #1 oral.liqd PRN Reason: Cough Pantoprazole [Protonix TAB] 40 mg PO DAILY #30 tablet
--- NOTE | 2018-07-28 11:04 | Progress Note ---
Assessment and Plan Acute Kidney Injury possibly prerenal in setting of nausea, vomiting, questionable underlying CKD process, r/o obstruction: - SILVIA resolved - Renally dose medsr - Renal US ordered - [place] Catheter: No Vomiting: Questionable Hematemesis: - GI consulted, pt defered EGD at this time - As per primary team Hyponatremia: -resolved Elevated D-Dimer: - VQ Scan showed no specific PE - As per primary Subjective Date of service: 07/28/18 Principal diagnosis: acute renal failure Interval history: denies acute issues, comfortable Objective - Vital Signs Vital signs: Vital Signs - 12hr 07/27/18 07/28/18 07/28/18 23:38 05:00 05:44 Temperature 98.6 F 98.1 F Pulse Rate 111 H 113 H 114 H Pulse Rate [ Apical] Pulse Rate [ Posterior Bilateral Throughout] Pulse Rate [ Throughout] Respiratory 20 20 Rate Respiratory Rate [Posterior Bilateral Throughout] Respiratory Rate [ Throughout] Blood Pressure 129/65 127/69 O2 Sat by Pulse 99 98 Oximetry 07/28/18 07/28/18 07/28/18 07:53 07:55 10:00 Temperature 98.4 F Pulse Rate 95 H Pulse Rate [ 84 Apical] Pulse Rate [ Posterior Bilateral Throughout] Pulse Rate [ Throughout] Respiratory 20 20 Rate Respiratory Rate [Posterior Bilateral Throughout] Respiratory Rate [ Throughout] Blood Pressure 136/66 O2 Sat by Pulse 98 97 Oximetry 07/28/18 07/28/18 10:13 10:16 Temperature Pulse Rate 95 H Pulse Rate [ Apical] Pulse Rate [ 84 Posterior Bilateral Throughout] Pulse Rate [ 88 Throughout] Respiratory Rate Respiratory 16 Rate [Posterior Bilateral Throughout] Respiratory 18 Rate [ Throughout] Blood Pressure 136/66 O2 Sat by Pulse Oximetry - General Appearance General appearance: well-developed EENT: ATNC, mucous membranes moist Neck: no JVD, no carotid bruit Respiratory: Present: Clear to Ascultation. Absent: Rales, Ronchi Cardiology: regular, S1S2 Gastrointestinal: normoactive bowel sounds, no tenderness, no distended Integumentary: no rash, warm and dry Neurologic: no focal deficit, no asterixis Musculoskeletal: other (no edema in BLE) Psychiatric: cooperative - Lab 07/28/18 06:01 07/28/18 06:01 Most recent lab results Calcium 8.6 mg/dL (8.4-10.2) 07/28/18 06:01 Phosphorus 2.70 mg/dL (2.5-4.5) 07/27/18 05:28 Magnesium 1.80 mg/dL (1.7-2.3) 07/27/18 05:28 Medications & Allergies - Medications Allergies/Adverse Reactions: Allergies No Known Allergies Allergy (Verified 07/25/18 22:39) Home Medications: Home Medications Medication Instructions Recorded Confirmed Last Taken Type ALBUTEROL Inhaler(NF) [VENTOLIN 1 puff IH Q4H PRN #1 can 07/28/18 Unknown Rx Inhaler(NF)] Ferrous Sulfate 325 mg PO BID #60 tablet. 07/28/18 Unknown Rx Pantoprazole [Protonix TAB] 40 mg PO DAILY #30 tablet 07/28/18 Unknown Rx guaiFENesin [Robitussin] 200 mg PO Q4H PRN #1 oral.liqd 07/28/18 Unknown Rx Active Medications: Generic Name Dose Route Start Last Admin Trade Name Freq PRN Reason Stop Dose Admin Acetaminophen 650 mg 07/26/18 04:25 Tylenol PO Q4H PRN Fever >101 Albuterol 2.5 mg 07/26/18 06:00 07/26/18 08:58 Proventil IH 2.5 mg Q6HRT PRN Administration Shortness Of Breath Albuterol/Ipratropium 1 ampul 07/27/18 14:00 07/28/18 10:15 Duoneb *Not For Prn Use* IH 1 ampul TIDRT LULY Administration Guaifenesin 200 mg 07/26/18 04:34 07/27/18 21:54 Robitussin PO 200 mg Q4H PRN Administration Cough Sodium Chloride 1,000 mls @ 50 mls/hr 07/27/18 14:00 07/27/18 21:55 Nacl 0.9% 1000 Ml IV 50 mls/hr DIRECT LULY Administration Methylprednisolone Sodium Succinate 40 mg 07/27/18 22:00 07/28/18 10:13 Solu-Medrol IV 40 mg Q12HR LULY Administration Metoprolol Tartrate 12.5 mg 07/27/18 11:00 07/28/18 10:13 Lopressor PO 12.5 mg BID LULY Administration Ondansetron HCl 4 mg 07/26/18 04:30 Zofran IV Q8H PRN Nausea And Vomiting Pantoprazole Sodium 40 mg 07/28/18 10:00 07/28/18 10:13 Protonix PO 40 mg DAILY LULY Administration
[2018-07-28 11:34] VITALS: BP 117/49
== END 2018-07-28 14:46 | disposition home or self-care (01) | DRG 871 ==
LOC: ED 21:58 → 4A 07-26 05:37
PROVIDERS: ADMIT Internal Medicine; ATTEND Internal Medicine
PROC: 0DB68ZX Excision of Stomach, Via Natural or Artificial Opening Endoscopic, Diagnostic (ICD-10-PCS; principal; 2018-07-27)
DX: A41.9 Sepsis, unspecified organism (principal); K25.4 Chronic or unspecified gastric ulcer with hemorrhage; N17.0 Acute kidney failure with tubular necrosis; K29.71 Gastritis, unspecified, with bleeding; K92.0 Hematemesis; D62 Acute posthemorrhagic anemia; E87.1 Hypo-osmolality and hyponatremia; H54.8 Legal blindness, as defined in USA; E86.0 Dehydration; K44.9 Diaphragmatic hernia without obstruction or gangrene; J20.9 Acute bronchitis, unspecified; F10.10 Alcohol abuse, uncomplicated; Y90.0 Blood alcohol level of less than 20 mg/100 ml; K21.9 Gastro-esophageal reflux disease without esophagitis; F17.200 Nicotine dependence, unspecified, uncomplicated; Z79.899 Other long term (current) drug therapy
CPT/HCPCS: 36415; 71045; 76770; 78582; 80048; 82140; 82550; 82553; 83735; 83880; 83970; 84100; 84484; 85014; 85018; 85025; 85027; 85379; 88305; 88342; 93005; 93010; 94640; 99292; G0378; A9540; A9558; C9113; J0692; J1940; J2704; J2920; J2930; J3370; J3475; J3480; J7030; J7040